=== PATIENT | female | born 1950 | race Two or more races ===

== ENCOUNTER 2016-08-15 13:53 | Emergency (ER) | payer MEDICAID, OTHER ==
[2016-08-15 14:05] VITALS: TEMP 97.5
[2016-08-15] MEDS ORDERED: NS 1,000 ML IV ONE (14:30)
[2016-08-15 14:36] LABS: % IMMATURE GRANULYOCYTES 0.3 % (0.0-1.1); ABSOLUTE IMMATURE GRANULOCYTES 0.02 10^3/uL (0.00-0.10); ADD DIFF? NO; ADD MORPH? NO; ADD SCAN? NO; ATYPICAL LYMPHOCYTE FLAG 10 (0-99); FRAGMENT RBC FLAG 0 (0-99); HEMATOCRIT 43.8 % (38.0-47.0); HEMOGLOBIN 15.2 g/dL (12.6-16.3); LEFT SHIFT FLG 0 (0-99); LIPEMIA HEMOLYSIS FLAG 90 (0-99); MEAN CELL HEMOGLOBIN 31.3 pg (27.9-34.1); MEAN CELL HEMOGLOBIN CONCENTR. 34.7 g/dL (32.4-36.7); MEAN CELL VOLUME 90.3 fL (81.5-99.8); MEAN PLATELET VOLUME 9.5 fL (8.7-11.7); PLATELET CLUMPS FLAG 0 (0-99); PLATELET COUNT 233 10^3/uL (150-400); RED BLOOD CELL COUNT 4.85 10^6/uL (4.18-5.33); RED CELL DISTRIBUTION WIDTH 12.8 % (11.5-15.2)
--- NOTE | 2016-08-15 14:37 | UCPHY ---
H & P Patient Type: New Chief Complaint Nursing Narrative: N/V/D/headache since last night. "I think it was something she ate.", per daughter of pt. denies fevers. is now fatigued and "feels dehydrated." Time Seen by Provider: 08/15/16 14:19 HPI/ROS: This patient presents with a chief complaint of vomiting, diarrhea and abdominal pain. During the night patient was awakened with vomiting and diarrhea and has had 3 episodes of vomiting and 6 episodes of diarrhea none of which contained blood. She has abdominal pain which she localizes to the upper abdomen. Her granddaughter was ill recently with similar symptoms which have resolved. Her mouth is dry and she feels dehydrated. When she went to bed last night she was feeling well and had no URI type symptoms and no urinary tract symptoms. She has felt chilled but does not think she has had a fever. She has a mild headache but no myalgias. REVIEW OF SYSTEMS: Constitutional: Fatigue, malaise, chills but no fever Eyes: No complaints ENT: Denies sore throat, nasal congestion or ear pain Respiratory: Denies cough, denies shortness of breath Cardiac: Denies chest pain Gastrointestinal: See above Genitourinary: Denies frequency, urgency, dysuria or hematuria Musculoskeletal: No myalgias Skin: no rash Neurological: Mild bifrontal headache Source: Patient, RN notes reviewed, Old records Exam Limitations: No limitations - Personal History Current Tetanus Diphtheria and Acellular Pertussis (TDAP): Yes - Medical/Surgical History Hx Asthma: No Hx Chronic Respiratory Disease: No Hx Diabetes: No Hx Cardiac Disease: Yes Hx Renal Disease: No Hx Cirrhosis: No Hx Alcoholism: No Hx HIV/AIDS: No Hx Splenectomy or Spleen Trauma: No Other PMH: HTN, GERD - Family History Significant Family History: No pertinent family hx - Social History Smoking Status: Never smoked - Physical Exam Exam: GENERAL: Well-appearing, well-nourished and in no acute distress. HEAD: Atraumatic, normocephalic. EYES: sclera anicteric, conjunctiva are normal. ENT: nares patent, oropharynx clear without exudates. Slightly dry mucous membranes. NECK: Normal range of motion, supple without lymphadenopathy or JVD. Nontender LUNGS: Breath sounds clear to auscultation bilaterally and equal. No wheezes rales or rhonchi. HEART: Regular rate and rhythm without murmurs, rubs or gallops. ABDOMEN: Soft, increased bowel sounds. No guarding, no rebound. No masses appreciated. There is at tenderness in both upper quadrants but not the epigastrium. EXTREMITIES: Normal range of motion, no pitting or edema. No clubbing or cyanosis. NEUROLOGICAL: Cranial nerves II through XII grossly intact. Normal speech, normal gait. PSYCH: Normal mood, normal affect. SKIN: Warm, dry, normal turgor, no visible rashes or lesions. Back: No CVA tenderness Constitutional: Initial Vital Signs Temperature (C) 36.4 C 08/15/16 14:02 Heart Rate 65 08/15/16 14:02 Respiratory Rate 18 08/15/16 14:02 Blood Pressure 153/80 H 08/15/16 14:02 O2 Sat (%) 96 08/15/16 14:02 O2 Delivery Mode Room Air Allergies/Adverse Reactions: No Known Allergies Allergy (Unverified 08/15/16 14:01) Home Medications: Medication Instructions Recorded Metoprolol Succinate Xr [Toprol Xl 25 mg PO DAILY #30 tab 12/02/14 25 mg (*)] Pantoprazole Sodium [Protonix 40mg 40 mg PO DAILY #30 tab 12/02/14 (*)] Simethicone [Mylicon] 80 mg PO PCHS #30 tabchew 12/02/14 Ondansetron Odt [Zofran Odt] 4 mg PO Q4PRN PRN #4 tab 08/15/16 Medical Decision Making ED Course/Re-evaluation: Patient was hydrated with 1 L of normal saline given 4 mg of Zofran intravenously. She was able to take fluids orally without vomiting. On discharge she was feeling much improved and denies any abdominal pain or nausea. She did not have diarrhea while in the department. - Data Points Laboratory Results: Laboratory Results 08/15/16 14:14 08/15/16 14:14 08/15/16 08/15/16 14:14 14:14 WBC 5.98 10^3/uL 10^3/uL (3.80-9.50) RBC 4.85 10^6/uL 10^6/uL (4.18-5.33) Hgb 15.2 g/dL g/dL (12.6-16.3) Hct 43.8 % % (38.0-47.0) MCV 90.3 fL fL (81.5-99.8) MCH 31.3 pg pg (27.9-34.1) MCHC 34.7 g/dL g/dL (32.4-36.7) RDW 12.8 % % (11.5-15.2) Plt Count 233 10^3/uL 10^3/uL (150-400) MPV 9.5 fL fL (8.7-11.7) Neut % (Auto) 83.1 % H % (39.3-74.2) Lymph % (Auto) 12.4 % L % (15.0-45.0) Burke % (Auto) 3.5 % L % (4.5-13.0) Eos % (Auto) 0.5 % L % (0.6-7.6) Baso % (Auto) 0.2 % L % (0.3-1.7) Nucleat RBC Rel Count 0.0 % % (0.0-0.2) Absolute Neuts (auto) 4.97 10^3/uL 10^3/uL (1.70-6.50) Absolute Lymphs (auto) 0.74 10^3/uL L 10^3/uL (1.00-3.00) Absolute Monos (auto) 0.21 10^3/uL L 10^3/uL (0.30-0.80) Absolute Eos (auto) 0.03 10^3/uL 10^3/uL (0.03-0.40) Absolute Basos (auto) 0.01 10^3/uL L 10^3/uL (0.02-0.10) Absolute Nucleated RBC 0.00 10^3/uL 10^3/uL (0-0.01) Immature Gran % 0.3 % % (0.0-1.1) Immature Gran # 0.02 10^3/uL 10^3/uL (0.00-0.10) Sodium 142 mEq/L mEq/L (134-144) Potassium 4.1 mEq/L mEq/L (3.5-5.2) Chloride 104 mEq/L mEq/L (97-110) Carbon Dioxide 22 mEq/l mEq/l (22-31) Anion Gap 16 mEq/L mEq/L (8-16) BUN 17 mg/dL mg/dL (7-23) Creatinine 0.7 mg/dL mg/dL (0.6-1.0) Estimated GFR > 60 Glucose 100 mg/dL mg/dL (70-100) Calcium 9.3 mg/dL mg/dL (8.5-10.4) Total Bilirubin 0.9 mg/dL mg/dL (0.1-1.4) AST 41 IU/L IU/L (14-46) ALT 47 IU/L IU/L (9-52) Alkaline Phosphatase 88 IU/L IU/L (38-126) Total Protein 7.5 g/dL g/dL (6.3-8.2) Albumin 4.2 g/dL g/dL (3.5-5.0) Medications Given: Discontinued Medications Ondansetron HCl (Zofran) 4 mg IVP EDNOW ONE Stop: 08/15/16 14:45 Last Admin: 08/15/16 14:50 Dose: 4 mg Departure - Departure Disposition: Home, Routine, Self-Care Clinical Impression: Gastroenteritis, Dehydration Condition: Good Instructions: Gastroenteritis (ED), Dehydration (ED), Abdominal Pain (ED), Acute Nausea and Vomiting (ED) Additional Instructions: If symptoms return you should return here. Do not eat any solids for the next 6 hours but take only liquids. Adult Pain & Fever Control: We recommend Acetaminophen (Tylenol) and Ibuprofen (Motrin, Advil) for pain and fever control. When fever is high or pain severe, both drugs can be used at the same time, but at different intervals. Please note the time differences. Your dose is: Acetaminophen [650]mg every 4 to 6 hours ibuprofen [600]mg every [6] hours with food OR naproxen Sodium (Aleve) [440]mg every 12 hours. Note: do not take Acetaminophen with Hydrocodone (Vicodin, Lortab) or Oxycodone (Percocet). These medications also contain Acetaminophen. No more than 3000 mg of Acetaminophen should be taken in 24 hours (for an adult) . The maximal dose of ibuprofen that it is safe in a 24-hour period is 2400 mg. You may take 400 mg every 4 hours, 600 mg every 6 hours or 800 mg every 8 hours safely. Referrals: CLINICA CAMPESINA,. [Primary Care Provider] - As per Instructions Prescriptions: Ondansetron Odt [Zofran Odt] 4 mg PO Q4PRN PRN #4 tab PRN Reason: For Nausea & Vomiting - PQRS PQRS Measurement: Not applicable
[2016-08-15] MEDS ORDERED: ONDANSETRON 4 MG/2 ML VIAL IVP ONE (14:44)
[2016-08-15 14:48] LABS: ALANINE AMINOTRANSFERASE 47 IU/L (9-52); ALBUMIN 4.2 g/dL (3.5-5.0); ALKALINE PHOSPHATASE 88 IU/L (38-126); ANION GAP 16 mEq/L (8-16); ASPARTATE AMINOTRANSFERASE 41 IU/L (14-46); BILIRUBIN,TOTAL 0.9 mg/dL (0.1-1.4); CALCIUM 9.3 mg/dL (8.5-10.4); CARBON DIOXIDE 22 mEq/l (22-31); CHLORIDE 104 mEq/L (97-110); CREATININE 0.7 mg/dL (0.6-1.0); GLOMERULAR FILTRATION RATE > 60; GLUCOSE 100 mg/dL (70-100); POTASSIUM 4.1 mEq/L (3.5-5.2); SODIUM 142 mEq/L (134-144); TOTAL PROTEIN 7.5 g/dL (6.3-8.2)
[2016-08-15 16:49] VITALS: BP 146/70; PULSE 88; RESP 16; O2SAT 97
== END 2016-08-15 16:00 | disposition home or self-care (01) ==
LOC: CED 13:53
DX: K52.9 Noninfective gastroenteritis and colitis, unspecified (principal); E86.0 Dehydration; I10 Essential (primary) hypertension; K21.9 Gastro-esophageal reflux disease without esophagitis
CPT/HCPCS: 80053-PO; 85025-PO; 96361-PO; 96374-PO; 99204-PO; G0463-PO; J2405

== ENCOUNTER 2018-06-26 08:36 | Observation (INO) | payer OTHER ==
[2018-06-26] MEDS ORDERED: HYDROmorphONE/DILAUDID 2 MG/ML INJ IVP ONE (08:59)
[2018-06-26] MEDS ORDERED: NS 1,000 ML IV ONE (08:59)
[2018-06-26] MEDS ORDERED: METOCLOPRAMIDE 10 MG/2 ML VIAL IVP ONE (08:59)
--- NOTE | 2018-06-26 09:03 | EDPHY ---
H & P Stated Complaint: Pt. vomting since yesterday Time Seen by Provider: 06/26/18 08:39 HPI/ROS: CHIEF COMPLAINT: Vomiting HISTORY OF PRESENT ILLNESS: The patient is a 68-year-old female with no past surgical history who has been complaining of abdominal pain nausea vomiting and no headache. She reports that yesterday she developed abdominal pain and was seen at [facility] ER twice. She was diagnosed with ovarian cysts and constipation by CT and ultrasound. She was given Zofran to take at home. She has been taking this however she continues to vomit throughout the night and this morning has developed a headache. Her headache is mild and diffuse. She denies trauma. No fever. No neck pain or stiffness. She did have a normal bowel movement this morning at 6:00 a.m.. No blood in her vomit. Severity: Severe Modifying factors: None REVIEW OF SYSTEMS: Constitutional: denies: chills, fever, recent illness, recent injury EENTM: denies: blurred vision, double vision, nose congestion Respiratory: denies: cough, shortness of breath Cardiac: denies: chest pain, irregular heart rate, lightheadedness, palpitations Gastrointestinal/Abdominal: denies: abdominal pain, diarrhea, nausea, vomiting, blood streaked stools Genitourinary: denies: dysuria, frequency, hematuria, pain Musculoskeletal: denies: joint pain, muscle pain Skin: denies: lesions, rash, jaundice, bruising Neurological: denies: headache, numbness, paresthesia, tingling, dizziness, weakness Hematologic/Lymphatic: denies: blood clots, easy bleeding, easy bruising Immunologic/allergic: denies: HIV/AIDS, transplant 10 systems reviewed and negative except as noted EXAM: GENERAL: Uncomfortable appearing, well nourished, HEAD: Atraumatic, normocephalic. EYES: Pupils equal round and reactive to light, extraocular movements intact, sclera anicteric, conjunctiva are normal. ENT: TMs normal, nares patent, oropharynx clear without exudates. Slightly dry mucous membranes. NECK: Normal range of motion, supple without lymphadenopathy or JVD. LUNGS: Breath sounds clear to auscultation bilaterally and equal. No wheezes rales or rhonchi. HEART: Regular rate and rhythm without murmurs, rubs or gallops. ABDOMEN: Soft, nontender, normoactive bowel sounds. No guarding, no rebound. No masses appreciated. No scars BACK: No CVA tenderness, no spinal tenderness, step-offs or deformities EXTREMITIES: Normal range of motion, no pitting or edema. No clubbing or cyanosis. NEUROLOGICAL: Cranial nerves II through XII grossly intact. Normal speech, normal gait. 5/5 strength, normal movement in all extremities, normal sensation , normal reflexes PSYCH: Normal mood, normal affect. SKIN: Warm, dry, normal turgor, no visible rashes or lesions. Source: Patient, Family Exam Limitations: Language barrier - Personal History Current Tetanus Diphtheria and Acellular Pertussis (TDAP): Unsure - Medical/Surgical History Hx Asthma: No Hx Chronic Respiratory Disease: No Hx Diabetes: No Hx Cardiac Disease: No Hx Renal Disease: No Hx Cirrhosis: No Hx Alcoholism: No Hx HIV/AIDS: No Hx Splenectomy or Spleen Trauma: No Other PMH: HTN, GERD,anxiety. Surg-none - Social History Smoking Status: Never smoked Constitutional: Initial Vital Signs Temperature (C) 36.9 C 06/26/18 08:43 Heart Rate 64 06/26/18 08:43 Respiratory Rate 16 06/26/18 08:43 Blood Pressure 124/65 H 06/26/18 08:43 O2 Sat (%) 98 06/26/18 08:43 O2 Delivery Mode Room Air O2 (L/minute) 2 Allergies/Adverse Reactions: No Known Allergies Allergy (Verified 06/26/18 08:42) Home Medications: Medication Instructions Recorded Metoprolol Succinate Xr [Toprol Xl 25 mg PO DAILY #30 tab 12/02/14 25 mg (*)] FLUoxetine [Prozac 20 MG (*)] 06/26/18 Medical Decision Making - Diagnostics EKG Interpretation: An EKG obtained and was read and documented in trace view. Please see trace view for full reading and report. Sinus rhythm, left bundle branch block, unchanged from previous Imaging Results: Imaging Impressions Abdomen CT 06/26/18 08:59 Impression: 1. Complex mass at the left adnexa with both solid and cystic components, with primary differential being mucous cystadenocarcinoma or adenoma of the left ovary. This can be further evaluated by a complete pelvic ultrasound. 2. Lower central pelvic mass with similar imaging characteristics, consisting mostly of a multiseptated complex cyst. Metastasis from a low-grade process is not excluded. This can be evaluated by transabdominal ultrasound. 3. Otherwise, no evidence for lymphadenopathy or ascites. 4. Multiple cysts in the liver. Findings and recommendations discussed with Curtis Correa at 1045 a.m. ON . Final report concurs with initial preliminary interpretation. Imaging: Discussed imaging studies w/ callisthenics instructor Radiologist ED Course/Re-evaluation: 9:45 a.m. I received paperwork from Clarence. She was initially seen at the clinic for right upper quadrant pain over the last month. She was sent for an ultrasound that showed a hepatic cyst and positive Jarrell sign. She was then told to go to the ER. She was seen in the ER and he had slightly low sodium and potassium 2.9. She was given normal saline and oral potassium. CT scan showed simple hepatic cyst as well as complicated adnexal cysts bilaterally. She appeared to have a fecal impaction without obstruction and was given Maalox and Colace and magnesium citrate. Also follow up with curtain framer for evaluation of the adnexal cysts. Urinalysis negative. Lipase 143. She was then seen again in the ER and she received Reglan and Dilaudid and rehydration. There was some discussion about admission however she seem to improve and was able to be discharged. 10:30 a.m. patient feels persistently nauseous and headachy despite medication thus far. Will add Haldol. She will require admission because of intractable nausea and vomiting and dehydration and slight hypokalemia. Family agrees to admission to [facility]. Abdomen remains nontender. She states that she had a decent sized bowel movement this morning. I do not think that she is continuing to suffer from impaction. Discussed the case with Dr. Ahuja who will admit to the medical service. Have paged OBGYN to discuss indications of performing transvaginal ultrasound of the ovarian cysts. 10:50 a.m. discussed the case with Dr. Ramirez from OBGYN who does suggest ultrasound to rule out torsion. Also spoke with Radiology Dr. Cohen. She does recommend transvaginal and transabdominal ultrasound to evaluate the adnexal mass. 11:[address] Jiménez who will consult in the hospital. Differential Diagnosis: Partial list of the Differential diagnosis considered include but were not limited to; gastritis, dehydration, obstruction, and although unlikely based on the history and physical exam, I also considered appendicitis, biliary disease, perforation, ovarian torsion. I discussed these differential diagnoses and the plan with the patient as well as the usual and expected course. The patient understands that the diagnosis is provisional and that in medicine we are not always correct and that further workup is often warranted. Usual and customary warnings were given. All of the patient's questions were answered. The patient was instructed to return to the emergency department should the symptoms at all worsen or return, otherwise to followup with the physician as we discussed. - Data Points Laboratory Results: 06/26/18 06/26/18 09:39 09:14 POC Hgb 12.6 gm/dL gm/dL (12.6-16.3) POC Hct 37 % L % (38-47) POC Sodium 135 mEq/L mEq/L 134 mEq/L L mEq/L (135-145) (135-145) POC Potassium 2.8 mEq/L L mEq/L 2.8 mEq/L L mEq/L (3.3-5.0) (3.3-5.0) POC Chloride 98 mEq/L mEq/L 104.0 mEq/L mEq/L (97-110) (97-110) POC Total CO2 25 mEq/L mEq/L (22-31) POC BUN 10 mg/dL mg/dL 10 mg/dL mg/dL (7-23) (7-23) POC Creatinine 0.6 mg/dL mg/dL 0.7 mg/dL mg/dL (0.6-1.0) (0.6-1.0) POC Glucose 132 mg/dL H mg/dL 127 mg/dL H mg/dL (70-100) (70-100) POC Calcium 8.9 mg/dL mg/dL (8.5-10.4) POC Total Bilirubin 0.9 mg/dL mg/dL (0.1-1.4) POC AST 20 IU/L IU/L (14-46) POC ALT 17 IU/L IU/L (9-52) POC Alk Phosphatase 52 IU/L IU/L (38-126) POC Total Protein 6.4 g/dL g/dL (6.3-8.2) POC Albumin 3.7 g/dL g/dL (3.5-5.0) Medications Given: Sodium Chloride (Ns) 1,000 mls @ 50 mls/hr IV CONT LIZ Stop: 12/23/18 11:12 Last Admin: 06/26/18 11:13 Dose: 1,000 mls Discontinued Medications Haloperidol Lactate (Haldol Injection) 2.5 mg IVP EDNOW ONE Stop: 06/26/18 10:08 Last Admin: 06/26/18 10:16 Dose: 2.5 mg Hydromorphone HCl (Dilaudid) 0.5 mg IVP EDNOW ONE Stop: 06/26/18 09:00 Last Admin: 06/26/18 09:24 Dose: 0.5 mg Sodium Chloride (Ns) 1,000 mls @ 0 mls/hr IV EDNOW ONE; Wide Open PRN Reason: Protocol Stop: 06/26/18 09:00 Last Admin: 06/26/18 09:14 Dose: 1,000 mls Potassium Chloride (Potassium Cl 10 Meq (Premix)) 100 mls @ 100 mls/hr IV Q1H LIZ Stop: 06/26/18 12:59 Last Admin: 06/26/18 12:30 Dose: 100 mls Ketorolac Tromethamine (Toradol) 15 mg IVP EDNOW ONE Stop: 06/26/18 10:51 Last Admin: 06/26/18 11:10 Dose: 15 mg Metoclopramide HCl (Reglan Injection) 10 mg IVP EDNOW ONE Stop: 06/26/18 09:00 Last Admin: 06/26/18 09:15 Dose: 10 mg Ondansetron HCl (Zofran) 4 mg IVP EDNOW ONE Stop: 06/26/18 11:35 Last Admin: 06/26/18 12:19 Dose: 4 mg Potassium Chloride (Potassium Chloride Oral Liquid) 20 meq PO EDNOW ONE Stop: 06/26/18 09:45 Last Admin: 06/26/18 13:03 Dose: Not Given Point of Care Test Results: CBC CBC Collection Date 06/26/18 CBC Collection Time 09:09 WBC 5.8 RBC 4.01 HGB 13.0 HCT 36.7 PLT 250 Neut # 4.8 Neut 82.5 LYMPH # 0.8 LYMPH 13.9 Other WBC # 0.2 Other WBC 3.6 MCV 91.5 Chemistry 06/26/18 06/26/18 09:39 09:14 POC Sodium 135 mEq/L mEq/L 134 mEq/L L mEq/L (135-145) (135-145) POC Potassium 2.8 mEq/L L mEq/L 2.8 mEq/L L mEq/L (3.3-5.0) (3.3-5.0) POC Chloride 98 mEq/L mEq/L 104.0 mEq/L mEq/L (97-110) (97-110) POC Total CO2 25 mEq/L mEq/L (22-31) POC BUN 10 mg/dL mg/dL 10 mg/dL mg/dL (7-23) (7-23) POC Creatinine 0.6 mg/dL mg/dL 0.7 mg/dL mg/dL (0.6-1.0) (0.6-1.0) POC Glucose 132 mg/dL H mg/dL 127 mg/dL H mg/dL (70-100) (70-100) POC Calcium 8.9 mg/dL mg/dL (8.5-10.4) POC Total Bilirubin 0.9 mg/dL mg/dL (0.1-1.4) POC AST 20 IU/L IU/L (14-46) POC ALT 17 IU/L IU/L (9-52) POC Alk Phosphatase 52 IU/L IU/L (38-126) POC Total Protein 6.4 g/dL g/dL (6.3-8.2) POC Albumin 3.7 g/dL g/dL (3.5-5.0) ISTAT H&H 06/26/18 09:39 POC Hgb 12.6 gm/dL gm/dL (12.6-16.3) POC Hct 37 % L % (38-47) Departure - Departure Disposition: [facility] Inpatient Acute Clinical Impression: Abdominal pain Qualifiers: Abdominal location: generalized Qualified Code(s): R10.84 - Generalized abdominal pain Vomiting Qualifiers: Vomiting type: unspecified Vomiting Intractability: intractable Nausea presence : with nausea Qualified Code(s): R11.2 - Nausea with vomiting, unspecified Condition: Fair
[2018-06-26] MEDS ORDERED: IOPAMIDOL (ISOVUE-370) 150 ML BTL IV ONE (09:14)
--- NOTE | 2018-06-26 09:43 | CPEKG ---
Test Reason : OPEN Blood Pressure : / mmHG Vent. Rate : 067 BPM Atrial Rate : 067 BPM P-R Int : 166 ms QRS Dur : 169 ms QT Int : 510 ms P-R-T Axes : 070 -12 100 degrees QTc Int : 539 ms Sinus rhythm Left bundle branch block Confirmed by Curtis Correa ([id number] on 06/26/2018 9:42:48 AM Referred By: Confirmed By:Curtis Correa
[2018-06-26] MEDS ORDERED: POTASSIUM CL 20 MEQ/15 ML UDCUP PO ONE (09:44)
[2018-06-26] MEDS ORDERED: HALOPERIDOL LACT 5 MG/ML INJ IVP ONE (10:07)
[2018-06-26] MEDS ORDERED: KETOROLAC 30 MG/1 ML SDV IVP ONE (10:50)
[2018-06-26] MEDS ORDERED: POTASSIUM Cl (KCl) 10 MEQ/100 ML BAG IV ONE ×2 (11:03→12:22)
[2018-06-26] MEDS: NS 1,000 ML IV SCH ×2 (11:13→16:23)
[2018-06-26] MEDS: POTASSIUM Cl (KCl) 100 ML IV SCH ×2 (11:15→12:30)
[2018-06-26] MEDS ORDERED: ONDANSETRON 4 MG/2 ML VIAL ONE (11:33)
[2018-06-26] MEDS ORDERED: ONDANSETRON 4 MG/2 ML VIAL IVP ONE (11:34)
[2018-06-26] MEDS ORDERED: ONDANSETRON 4 MG/2 ML VIAL IVP PRN (13:57)
[2018-06-26] MEDS ORDERED: ONDANSETRON DISINTEGRATING 4 MG TAB PO PRN (13:57)
[2018-06-26] MEDS ORDERED: ACETAMINOPHEN 325 MG TAB PO PRN ×2 (13:57→15:52)
[2018-06-26] MEDS ORDERED: NS 1,000 ML IV SCH (14:00)
[2018-06-26] MEDS ORDERED: PROTOCOL POTASSIUM 1 DOSE MISC PRN (16:10)
[2018-06-26] MEDS ORDERED: LORazepam 0.5 MG TAB PO PRN (16:47)
[2018-06-26] MEDS ORDERED: oxyCODONE IR 5 MG TAB PO PRN (16:48)
--- NOTE | 2018-06-26 19:01 | PDGENHP ---
<Ana Park - Last Filed: 06/26/18 19:26> History and Physical - Chief Complaint Abdominal pain, vomiting - History of Present Illness This is a 68 y/o female with history of hypertension, gerd, and anxiety presenting to the emergency room for abdominal pain, nausea and vomiting. She was seen by [facility] two times yesterday for RUQ pain over the last month. She had an ultrasound that showed a hepatic cyst. She had slightly low sodium and potassium (2.9). CT scan showed simple hepatic cyst as well as complicated adnexal cyst bilaterally. Also appeared to have fecal impaction without obstruction. She was given normal saline, oral potassium, maalox, colace and magnesium citrate and recommended to follow up with gyneology for an evaluation of her adnexal cysts. She returned again to [facility] d/t continued nausea and abdominal pain and was given Zofran. Discussion of admittance took place however it seemed she improved and was discharged once again from the emergency room. She presents to [facility] today due to intractable nausea and vomiting despite all medications given to her thus far. She did have a sizeable bowel movement this morning. Emergency room discussed case with Dr. Ramirez from OBGYN who suggest US to r/o torsion. Emergency room also spoke with Dr. Cohen who recommends transvaginal and transabdominal ultrasound to evaluate the adnexal mass. Mammographer used to discuss with patient. Past Medical/Surgical History 1. Anxiety 2. GERD 3. Hypertension Social 1. Denies tobacco or illicit drug use. Denies alcohol use. History Information - Allergies/Home Medication List Allergies/Adverse Reactions: No Known Allergies Allergy (Verified 06/26/18 08:42) Home Medications: Acetaminophen [Tylenol 325mg (*)] 650 mg PO Q6 PRN 06/26/18 [Last Taken Unknown] Chlorthalidone [Chlorthalidone 25 mg (*)] 25 mg PO DAILY 06/26/18 [Last Taken Unknown] FLUoxetine [Prozac 10 MG (*)] 10 mg PO DAILY 06/26/18 [Last Taken Unknown] Multivitamins [Multivitamin (*)] 1 each PO DAILY 06/26/18 [Last Taken Unknown] I have personally reviewed and updated: family history, medical history, social history, surgical history Past Medical History: See HPI list - Surgical History Additional surgical history: See HPI list - Family History Positive for: non-pertinent - Social History Smoking Status: Never smoked Alcohol Use: None Drug Use: None Review of Systems Review of Systems: ROS: 10pt was reviewed & negative except for what was stated in HPI & below Constitutional: Reports: malaise EENMT: Reports: no symptoms Cardiac: Reports: lightheadedness Respiratory: Reports: no symptoms Gastrointestinal: Reports: vomitting, abdominal pain, nausea Genitourinary: Reports: no symptoms Muscolosketal: Reports: no symptoms Skin: Reports: no symptoms Neurological: Reports: headache Hematologic/Lymphatic: Reports: no symptoms Immunologic/Allergy: Reports: no symptoms Physical Exam Physical Exam: Lab data and imaging reviewed Temp Pulse Resp BP Pulse Ox 37.1 C 59 L 14 116/57 L 92 06/26/18 14:29 06/26/18 14:29 06/26/18 14:29 06/26/18 14:29 06/26/18 18:15 O2 (L/minute) 2 Constitutional: no apparent distress, appears nourished, not in pain Eyes: PERRL, anicteric sclera, EOMI Ears, Nose, Mouth, Throat: moist mucous membranes, hearing normal, ears appear normal, no oral mucosal ulcers Cardiovascular: regular rate and rhythym, no murmur, rub, or gallop, No edema Peripheral Pulses: 2+: dorsalis-pedis (R) (Radial 2+), dorsalis-pedis (L) ( Radial 2+) Respiratory: no respiratory distress, no rales or rhonchi, clear to auscultation Gastrointestinal: normoactive bowel sounds, no palpable masses, tenderness Genitourinary: no bladder fullness, no bladder tenderness Skin: warm, normal color, no rashes or abrasions, no fluctuance, no induration, No mottled Musculoskeletal: full muscle strength, no muscle tenderness, normal joint ROM, no joint effusions Neurologic: AAOx3, sensation intact bilaterally, CN II-XII Intact Psychiatric: interacting appropriately, not anxious, not encephalopathic, thought process linear Lymph, Heme, Immunologic: no cervical LAD, no supraclavicular LAD Lab Data & Imaging Review 06/26/18 16:10 POC Hgb 12.6 gm/dL (12.6-16.3) 06/26/18 09:39 POC Hct 37 % (38-47) L 06/26/18 09:39 POC Sodium 135 mEq/L (135-145) 06/26/18 09:39 Sodium 131 mEq/L (135-145) L 06/26/18 16:10 POC Potassium 2.8 mEq/L (3.3-5.0) L 06/26/18 09:39 Potassium 3.1 mEq/L (3.5-5.2) L 06/26/18 16:10 POC Chloride 98 mEq/L (97-110) 06/26/18 09:39 Chloride 102 mEq/L (97-110) 06/26/18 16:10 Carbon Dioxide 24 mEq/l (22-31) 06/26/18 16:10 POC Total CO2 25 mEq/L (22-31) 06/26/18 09:14 Anion Gap 5 mEq/L (6-14) L 06/26/18 16:10 POC BUN 10 mg/dL (7-23) 06/26/18 09:39 BUN 10 mg/dL (7-23) 06/26/18 16:10 Creatinine 0.6 mg/dL (0.6-1.0) 06/26/18 16:10 POC Creatinine 0.6 mg/dL (0.6-1.0) 06/26/18 09:39 Estimated GFR > 60 06/26/18 16:10 Glucose 113 mg/dL (70-100) H 06/26/18 16:10 POC Glucose 132 mg/dL (70-100) H 06/26/18 09:39 POC Calcium 8.9 mg/dL (8.5-10.4) 06/26/18 09:14 Calcium 8.3 mg/dL (8.5-10.4) L 06/26/18 16:10 Magnesium 2.1 mg/dL (1.6-2.3) 06/26/18 16:10 POC Total Bilirubin 0.9 mg/dL (0.1-1.4) 06/26/18 09:14 POC AST 20 IU/L (14-46) 06/26/18 09:14 POC ALT 17 IU/L (9-52) 06/26/18 09:14 POC Alk Phosphatase 52 IU/L (38-126) 06/26/18 09:14 POC Total Protein 6.4 g/dL (6.3-8.2) 06/26/18 09:14 POC Albumin 3.7 g/dL (3.5-5.0) 06/26/18 09:14 CA 125 Antigen 12.1 U/mL (0.0-35.0) 06/26/18 16:10 Assessment & Plan Plan: 68 y/o presenting with ongoing abdominal pain, nausea and vomiting. 1. Abdominal pain: suspect the cause is complex mass at the left adnexa with both solid and cystic component as well as lower central pelvic mass with similar characteristics. Suspicious for underlying malignancy. In regards to her RUQ pain, CT scan does show multiple cysts in the liver suggesting etiology. -Manage pain PO/IVP PRN -Clears diet -OBGYN consulted and aware -CA-125 (12.1) -MRI of abdomen/pelvis w/wo contrast pending 2. Nausea: anti-emetics PRN. Clear diet as tolerated. IVF 3. Hypokalemia: (2.8). I suspect caused from her persistent emesis. -Initiated potassium protocol; replace potassium as needed -Recheck CBC/BMP tomorrow morning -IVF 4. Hyponatremia: (131) see above. IVF. Rechecking CBC/BMP tomorrow. 5. 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 pt at [facility]) Review of Systems Review of Systems: Physical Exam Physical Exam: Temp Pulse Resp BP Pulse Ox 98.6 F 69 14 138/73 H 94 06/27/18 07:46 06/27/18 07:46 06/27/18 07:46 06/27/18 07:46 06/27/18 07:46 O2 (L/minute) 2 Lab Data & Imaging Review 06/27/18 04:38 06/27/18 04:38 WBC 4.07 10^3/uL (3.80-9.50) 06/27/18 04:38 RBC 3.73 10^6/uL (4.18-5.33) L 06/27/18 04:38 Hgb 12.3 g/dL (12.6-16.3) L 06/27/18 04:38 POC Hgb 12.6 gm/dL (12.6-16.3) 06/26/18 09:39 Hct 35.5 % (38.0-47.0) L 06/27/18 04:38 POC Hct 37 % (38-47) L 06/26/18 09:39 MCV 95.2 fL (81.5-99.8) 06/27/18 04:38 MCH 33.0 pg (27.9-34.1) 06/27/18 04:38 MCHC 34.6 g/dL (32.4-36.7) 06/27/18 04:38 RDW 12.6 % (11.5-15.2) 06/27/18 04:38 Plt Count 234 10^3/uL (150-400) 06/27/18 04:38 POC Sodium 135 mEq/L (135-145) 06/26/18 09:39 Sodium 136 mEq/L (135-145) 06/27/18 04:38 POC Potassium 2.8 mEq/L (3.3-5.0) L 06/26/18 09:39 Potassium 3.8 mEq/L (3.5-5.2) 06/27/18 04:38 POC Chloride 98 mEq/L (97-110) 06/26/18 09:39 Chloride 106 mEq/L (97-110) 06/27/18 04:38 Carbon Dioxide 24 mEq/l (22-31) 06/27/18 04:38 POC Total CO2 25 mEq/L (22-31) 06/26/18 09:14 Anion Gap 6 mEq/L (6-14) 06/27/18 04:38 POC BUN 10 mg/dL (7-23) 06/26/18 09:39 BUN 10 mg/dL (7-23) 06/27/18 04:38 Creatinine 0.7 mg/dL (0.6-1.0) 06/27/18 04:38 POC Creatinine 0.6 mg/dL (0.6-1.0) 06/26/18 09:39 Estimated GFR > 60 06/27/18 04:38 Glucose 97 mg/dL (70-100) 06/27/18 04:38 POC Glucose 132 mg/dL (70-100) H 06/26/18 09:39 POC Calcium 8.9 mg/dL (8.5-10.4) 06/26/18 09:14 Calcium 8.8 mg/dL (8.5-10.4) 06/27/18 04:38 Magnesium 2.1 mg/dL (1.6-2.3) 06/26/18 16:10 POC Total Bilirubin 0.9 mg/dL (0.1-1.4) 06/26/18 09:14 POC AST 20 IU/L (14-46) 06/26/18 09:14 POC ALT 17 IU/L (9-52) 06/26/18 09:14 POC Alk Phosphatase 52 IU/L (38-126) 06/26/18 09:14 POC Total Protein 6.4 g/dL (6.3-8.2) 06/26/18 09:14 POC Albumin 3.7 g/dL (3.5-5.0) 06/26/18 09:14 CA 125 Antigen 12.1 U/mL (0.0-35.0) 06/26/18 16:10 Assessment & Plan Assessment: Abdominal pain (Acute) Vomiting (Acute) Plan: Spoke with Dr Jiménez HIV CTS SPECIALIST, no indication for inpt consult, will need refer to [facility] CTS SPECIALIST/[facility] most likely as an outpt. MRI pelvis ordered so she can bring imaging to appt. I saw and examined her last night. I discussed and agree with her current care plan.
[2018-06-26] MEDS ORDERED: POTASSIUM CL 20 MEQ TAB PO ONE (20:00)
[2018-06-27] MEDS ORDERED: POTASSIUM CL 10 MEQ TAB PO ONE (08:30)
[2018-06-27] MEDS ORDERED: ENOXAPARIN 40 MG/0.4 ML SYR SC SCH (09:00)
[2018-06-27] MEDS ORDERED: FLUoxetine 10 MG CAP PO SCH (09:00)
[2018-06-27] MEDS ORDERED: GADOBUTROL 10 ML VIAL IVP ONE (10:09)
[2018-06-27 15:20] VITALS: BP 127/67
--- NOTE | 2018-06-27 17:38 | ASMTCMCOM ---
CM Note CM Note Notes: Pt admitted for vomitting and dehydration. Pt to have MRI today to ID possible mets from ovarian cancer. Pt is [place] speaking and lives with her children. 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 Pt may be candidate for [facility] support. Pt will also need [facility] appointment on discharge. Pt to discharge independently. D/C Plan: Independent, possible support from [facility] Date Signed: 06/27/2018 05:38 PM Electronically Signed By:Mary Grace Atkinson
--- NOTE | 2018-06-29 05:09 | CPEKG ---
Test Reason : OPEN Blood Pressure : / mmHG Vent. Rate : 068 BPM Atrial Rate : 068 BPM P-R Int : 211 ms QRS Dur : 167 ms QT Int : 506 ms P-R-T Axes : 068 -14 114 degrees QTc Int : 539 ms Sinus rhythm 1 degree av block Left bundle branch block Confirmed by Gustabo Mary ([id number]) on 06/29/2018 5:08:30 AM Referred By: Confirmed By:Gustabo Mary
== END 2018-06-27 19:01 | disposition home or self-care (01) ==
LOC: CED 08:36 → CEDHOLD 10:33 → F3E 14:23
PROVIDERS: ADMIT Student in an Organized Health Care Education/Training Program; ATTEND Student in an Organized Health Care Education/Training Program
DX: N83.9 Noninflammatory disorder of ovary, fallopian tube and broad ligament, unspecified (principal); K76.89 Other specified diseases of liver; K59.00 Constipation, unspecified; E86.0 Dehydration; E87.1 Hypo-osmolality and hyponatremia; I10 Essential (primary) hypertension; F41.9 Anxiety disorder, unspecified
CPT/HCPCS: 74177-PO; 76856-PO; 80053-ER; 82435-PO; 82565-PO; 82947-PO; 84132-PO; 84295-PO; 84520-PO; 85014-ER; 86304-90; 96361-ER; 96365; 96366-ER; 96372-ER; 96375-ER; A9585; G0378; J1170; J1630; J1650; J1885; J2405; J2765; J3480; Q9967